=== PATIENT | male | born 1960 | race Caucasian/White ===

== ENCOUNTER → 2017-05-10 | Outpatient (CLI) | payer OTHER ==
[~2017-05-10] VITALS: Ht 238.8 cm; Wt 122.5 kg
[~2017-05-10] MED LIST: COZAAR 50 MG TA50 M2 PO; MOBIC15 MG PO; NORCO 10-325 T1 EACH PO; NORTRIPTYLINE H25 M3 PO; OPANA10 MG PO; Opana ER PO; PERCOCET 10-321 EACH PO; PRAVACHOL20 MG PO
--- NOTE | ~2017-05-10 | HPC ---
[facility] [place] [address] PAIN MANAGEMENT CONSULTATION Name: LAURA CORONEL Room #: REG DESMONDRinku Carvajal#: [id number] Admission: 05/10/17 Attend Phys: Johnny Deleon DO Discharge: Date of : 56 Report #: [id number] THIS REPORT FOR: //name// CC: Johnny Vizcaino MD DATE OF SERVICE: 05/10/2017 DATE OF SERVICE: 05/10/2017 CHIEF COMPLAINT: Low back pain, right lower extremity pain. HISTORY OF PRESENT ILLNESS: As you know, the patient is a 56-year-old male with longstanding history of low back pain, right lower extremity pain. The patient indicates pain has been present since early 1999. He denies specific injury or trauma that may have led to symptoms. He states he has had lumbar surgery in 2005. He believes it might have been a diskectomy or possible laminectomy, though he is unsure. He indicates that he experienced continued numbness and tingling and chronic low back pain even after surgery. He tried gabapentin, but this led to some dysphoric effects. He has also tried Lyrica, unfortunately, this led to no improvement in symptoms, though he cannot remember the dose and he was likely under doses that the major cause of lack of efficacy with Lyrica therapy. The patient indicates that he has been taking chronic opioid medications and his primary care had requested a possible interventional treatment. He was subsequently referred to our clinic for discussion of options for treatment, as he is on Opana 20 mg twice a day and is not receiving much in the way of benefit. He indicates his pain is constant, describes the pain as burning, sharp and stabbing, places current pain score 4/10, daily average of 4/10, worst the pain is 9/10. The patient indicates that climbing stairs and ladders exacerbate symptoms at rest and previous OxyContin therapy was effective for pain control. He had a rotation from OxyContin, as his third green party payer would no longer pay for such high levels of opioids nor they pay for the OxyContin formulation. He was subsequently changed over to Opana 20 mg dose twice a day and Equagesic dose but he is receiving not much in the way of improvement. Dr. Vizcaino request that we evaluate the patient for interventional treatments. PAST MEDICAL HISTORY: 1. Dyslipidemia. 2. Hypertension. 3. Chronic low back pain with opioid dependency. PAST SURGICAL HISTORY: Back surgery in 2002, back surgery in 2005, [place] [address] [address] PAIN MANAGEMENT CONSULTATION Name: LAURA CORONEL Room #: REG [facility].#: [id number] Admission: 05/10/17 Attend Phys: Johnny Deleon DO Discharge: Date of : 56 Report #: [id number] SOCIAL HISTORY: The patient denies tobacco, alcohol, IV or illicit drug use. 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 He is unaccompanied today. He is not in litigation in regards to his pain. REVIEW OF SYSTEMS: Positive for sexual difficulty, low back pain, numbness and tingling sensations radiating down the right lower extremity, depression, insomnia, hypertension and dyslipidemia. All other review of systems negative per 12-point review of systems other than those listed in history of present illness. Pain impact score 31/70 indicating moderate interference of daily activities secondary to pain. ALLERGIES: No known drug allergies. CURRENT MEDICATIONS: Hydrocodone/acetaminophen 10/325 one tab every 6 hours p.r.n. for pain, pravastatin 20 mg per day, losartan 50 mg per day, Opana ER 20 mg twice a day. IMAGING: No imaging available. PHYSICAL EXAMINATION: VITAL SIGNS: Blood pressure 145/97, pulse is 84, respiratory rate 20, unlabored. The patient 99% on room air, height 6 feet 2 inches tall, weight 270 pounds, BMI calculated 34.7. GENERAL: Well developed, well nourished, well-hydrated exogenously obese 56-year-old male. He appears his stated age. He is placing current pain score at approximately 4/10. HEENT: Normocephalic, atraumatic. Pupils equal, round, reactive to light. Extraocular muscles are intact. Sclerae nonicteric without injection. NEUROLOGIC: Cranial nerves 2-12 grossly intact. Speech is fluent. The patient deemed a good historian. LUNGS: Clear. No wheeze, rhonchi or rales. CARDIOVASCULAR: Regular. No appreciable gallop or rub. ABDOMEN: Soft, mildly obese, normoactive bowel sounds. EXTREMITIES: Show no clubbing, no cyanosis, no edema. MUSCULOSKELETAL: Seated straight leg raising negative. Supine straight leg raising mildly positive on the right. Fabere's test negative. Modified Gaenslen's positive for axial low back pain. Lumbar provocation testing including extension, rotation, lateral flexion all intensify axial back pain. Muscle bulk and tone equal and symmetrical in lower extremities, intact to light touch from L1 through S2 dermatomes. Ankle clonus negative. Babinski is negative. Gait mildly antalgic favoring right lower extremity over left. Stance is slightly forward flexed lumbar spine. ASSESSMENT: [address] [address] PAIN MANAGEMENT CONSULTATION Name: LAURA CORONEL Room #: REG TRACI Carvajal#: [id number] Admission: 05/10/17 Attend Phys: Johnny Deleon DO Discharge: Date of : 56 Report #: [id number] 1. Lumbar radiculopathy. 2. Lumbosacral spondylosis with radiculopathy. 3. Myofascial pain. 4. Chronic intractable pain. PLAN: 1. The patient has been referred to our service for evaluation for chronic low back pain has been present for nearly 19 years. Given the findings on physical exam, I am not impressed with significant lumbar radicular component, though he does have some right lower extremity paresthesias that radiates to above the knee. He comes to us today without imaging studies. I do feel that further information will be necessary before we can determine specific treatment options for this patient. Imaging will be the cornerstone of helping to direct treatment whether this be interventional treatments through our clinic, spinal cord stimulator therapy or surgical options. We also discussed the possibility of utilizing neuropathic pain medications. At this point, the patient is utilizing excessively high dose opioids in the form of Opana ER, which actually has been indicated, as a dangerous drug and has been voluntarily recalled from the market. We will ultimately need to change off the Opana ER to something much lower dose, but will defer to the primary team for that issue. 2. The patient will be sent for MRI lumbar spine without contrast. Once this has been obtained, we will review the findings and discuss more definitive treatment options for this patient. The patient was given the MRI without contrast orders to undergo the procedure as quickly as possible, so we review the findings and discuss options for treatment. 3. We have opted to start the patient on nortriptyline for neuropathic pain control. I have given the patient 25 mg tablet, 1 tab p.o. bedtime for 7 nights, then 2 tabs p.o. at bedtime for 7 nights, and 3 tabs p.o. at bedtime. He is to take the medication as directed. He is to watch for side effects of somnolence, decreased mental acuity, disorientation and confusion while utilizing the therapy. If the patient has any side effects to medication use, he is to contact our clinic. 4. We will keep you apprised of findings of the MRI and what treatment options we may offer to the patient. The patient had requested of our services to receive opioids. I advised the patient we did not start these medications, we do not have any clinical indication at this time that we should continue the therapy, and thus we will not be involved in that option of treatment until we have determined the course of treatment most appropriate. I have advised the patient that if he wishes refills of medications, he will have to contact his primary care physician at this time, as we have not determine whether or not he is an appropriate candidate for such high opioid dosing. The patient and I did discuss today CDC guidelines of about 90 morphine equivalent or less dosing for chronic pain. Opana is 3 times more potent than morphine, so at 20 mg dose, he is taking approximate 60 mg of morphine twice a day or 120 morphine equivalents. This is without calculating in the hydrocodone which he takes 3-4 a day to another 40 mg morphine equivalents equalling approximately [address] [address] PAIN MANAGEMENT CONSULTATION Name: LAURA CORONEL Room #: REG [facility] Wei#: [id number] Admission: 05/10/17 Attend Phys: Johnny Deleon DO Discharge: Date of : 56 Report #: [id number] equivalents well over the 90 morphine equivalents recommended by the new guidelines. I have discussed this with the patient today, but advised that if we were to leave and look at opioid therapy, he would have to comply with the CDC guidelines of 90 morphine equivalents or less. He is considering his options and will discuss with his primary care. 5. We wish to thank you for the opportunity to see this patient in consultation. We will keep you apprised of his response to treatments and what treatment options might be available. We will keep you posted on how he does with our therapeutic options. Again, we wish to thank you for the opportunity to see the patient in consultation. <ELECTRONICALLY SIGNED> By: Johnny Deleon DO 05/17/17 [id number] Johnny Deleon DO /nt
[2017-05-10 13:29] VITALS: BP 145/97
== END ==
LOC: PAIN 07:17
DX: M79.1 Myalgia (principal); R20.0 Anesthesia of skin; I10 Essential (primary) hypertension; Z79.899 Other long term (current) drug therapy; Z87.891 Personal history of nicotine dependence